=== PATIENT | male | born 2000 | race American Indian/Alaskan Native ===

== ENCOUNTER 2022-04-08 19:04 | Emergency (ER) | payer SELFPAY ==
[~2022-04-08] VITALS: Ht 172.7 cm; Wt 91.8 kg
[2022-04-08 19:15] VITALS: BP 148/82; TEMP 98.5
[2022-04-08] MEDS ORDERED: BACTRIM DS 8001 TAB PO (20:32)
[2022-04-08 20:55] VITALS: PULSE 108
== END 2022-04-08 21:10 | disposition home or self-care (01) ==
LOC: COL.ER 19:04
DX: L03.012 Cellulitis of left finger (principal); F17.200 Nicotine dependence, unspecified, uncomplicated; Z28.310 Unvaccinated for COVID-19

== ENCOUNTER 2022-04-10 04:37 | Emergency (ER) | payer SELFPAY ==
[~2022-04-10] VITALS: Ht 172.7 cm; Wt 91.8 kg
[~2022-04-10 04:37] MED LIST: BACTRIM DS 8001 TAB PO
[2022-04-10 04:42] VITALS: TEMP 97.9
[2022-04-10] MEDS ORDERED: CLEOCIN HCL300 MG PO (05:46)
[2022-04-10 06:18] VITALS: BP 132/81; PULSE 78
== END 2022-04-10 06:20 | disposition home or self-care (01) ==
LOC: COL.ER 04:37
DX: L03.012 Cellulitis of left finger (principal); F17.290 Nicotine dependence, other tobacco product, uncomplicated